=== PATIENT | female | born 2000 | race Caucasian/White ===

== ENCOUNTER 2021-07-18 20:55 | Emergency (ER) | payer MEDICAID, OTHER ==
[2021-07-18 22:10] LABS: #Eosinphils 0.2 10x3/uL (0.0-0.5); #Monocytes 0.4 10x3/uL (0.0-1.1); #Neutrophils 7.3 10x3/uL (1.5-8.4); %Basophils 0.4 % (0.0-2.0); %Lymphocytes 7.1 % (18.0-47.0); %Monocytes 4.9 % (0.0-10.0); %Neutrophils 85.1 % (40.0-75.0); Hemoglobin 11.6 g/dL (12.0-15.5); Mean Corpuscular HGB CONC 31.6 g/dL (32.0-36.0); Mean Corpuscular Hemoglobin 26.7 pg (27.0-33.0); Mean Corpuscular Volume 84.4 fl (81.6-98.3); Mean Platelet Volume 9.7 fl (7.4-10.4); Platelet Count 239 10x3/uL (150-450); RBC Distribution Width 13.4 % (11.5-14.5); Red Blood Cell (RBC) Count 4.35 10x6/uL (3.90-5.03); White Blood Cell (WBC) Count 8.5 10x3/uL (3.5-10.5)
[2021-07-18 22:32] LABS: ALT (SGPT) 10 U/L (8-55); AST (SGOT) 12 U/L (5-34); Albumin 3.6 g/dL (3.5-5.0); Alkaline Phosphatase 100 U/L (40-110); Anion Gap 11 mmol/L (10-20); BUN (Urea Nitrogen) 10 mg/dL (7.0-18.7); Bilirubin, Total 0.5 mg/dL (0.2-1.2); Calc. Creatinine Clearance 0 mL/min (70-130); Calcium 8.3 mg/dL (7.8-10.44); Carbon Dioxide 20 mmol/L (22-29); Chloride 108 mmol/L (98-107); Globulin 2.9 g/dL (2.4-3.5); Glucose 112 mg/dL (70-105); Potassium 3.2 mmol/L (3.5-5.1); Protein, Total 6.5 g/dL (6.0-8.3); Sodium 136 mmol/L (136-145)
== END 2021-07-18 23:17 | disposition home or self-care (01) ==
LOC: CSHERS 20:55
DX: N61.0 Mastitis without abscess (principal)
CPT/HCPCS: 80053; 83605; 85025; 99283

== ENCOUNTER 2025-02-03 00:09 | Day surgery (SDC) | payer OTHER ==
[2025-02-03] MEDS ORDERED: hydrALAZINE 20 MG/ML VIAL SLOW IVP PRN (00:45)
[2025-02-03 00:55] VITALS: BMI 25.4
== END 2025-02-03 05:38 | disposition home or self-care (01) ==
LOC: CSHLD/OP 00:09
PROVIDERS: ATTEND Family Medicine
DX: O47.1 False labor at or after 37 completed weeks of gestation (principal); O09.43 Supervision of pregnancy with grand multiparity, third trimester; Z3A.37 37 weeks gestation of pregnancy; Z67.11 Type A blood, Rh negative; Z79.899 Other long term (current) drug therapy
CPT/HCPCS: 99284

== ENCOUNTER 2025-02-12 23:38 | Inpatient (IN) | payer OTHER ==
[2025-02-13] MEDS ORDERED: Ibuprofen 800 MG TAB PO PRN (03:26)
[2025-02-13] MEDS ORDERED: hydrALAZINE 20 MG/ML VIAL SLOW IVP PRN ×3 (03:26→11:01)
[2025-02-13] MEDS ORDERED: Methylergonovine 0.2 MG/ML VIAL IM PRN ×2 (03:26→11:01)
[2025-02-13] MEDS ORDERED: Ondansetron PF 4 MG/2 ML Vial IVP PRN ×3 (03:26→11:01)
[2025-02-13] MEDS ORDERED: HYDROcodone/Acetaminophen 5/325 mg Tablet PO PRN (03:26)
[2025-02-13] MEDS ORDERED: Carboprost 250 MCG/ML AMP IM PRN (03:26)
[2025-02-13] MEDS ORDERED: Diphenoxylate HCl/Atropine Tablet PO PRN ×2 (03:26)
[2025-02-13] MEDS ORDERED: Lidocaine 1% (PF) 30 ML VIAL SC PRN (03:26)
[2025-02-13] MEDS ORDERED: Tranexamic Acid 1,000 MG/10 ML VIAL IVP PRN (03:26)
[2025-02-13 04:03] VITALS: BMI 25.4
[2025-02-13 04:27] LABS: Hematocrit 35.7 % (34.9-44.5); Hemoglobin 11.6 g/dL (12.0-15.5); Mean Corpuscular Hemoglobin 27.2 pg (27.0-33.0); Mean Corpuscular Volume 83.8 fL (81.6-98.3); Platelet Count 229 10x3/uL (150-450); Red Blood Cell (RBC) Count 4.26 10x6/uL (3.90-5.03); White Blood Cell (WBC) Count 14.78 10x3/uL (3.5-10.5)
[2025-02-13] MEDS: Penicillin G Potassium 5 MILL.UNITS in Sodium Chloride 0.9% 100 ML IVPB SCH (04:54)
[2025-02-13 04:59] LABS: Syphilis Antibody Index 0.04 S/CO (<1.00 Non-Reactive)
[2025-02-13 05:01] LABS: Hep B Surf Ag - L&D Non-Reactive S/CO (NonReactive)
[2025-02-13] MEDS: fentaNYL/Ropivacaine Epidural 100 ML ONE (06:46)
[2025-02-13] MEDS ORDERED: diphenhydrAMINE 50 MG/ML VIAL IVP PRN (07:09)
[2025-02-13] MEDS ORDERED: Acetaminophen 325 MG TAB PO PRN (07:09)
[2025-02-13] MEDS ORDERED: Communication Order-Pharmacy FS SCH (07:15)
[2025-02-13] MEDS ORDERED: fentaNYL 2 mcg/Ropivacaine 0.2% Epidural 100 ML CADD EPIDURAL SCH (07:15)
[2025-02-13] MEDS: Penicillin G 2.5 MILL.units 2.5 MILL.UNITS in Premix 1 BAG IVPB SCH (08:18)
[2025-02-13] MEDS: Oxytocin 30 units/NS 500 ML 500 ML IV SCH ×2 (08:18→11:27)
[2025-02-13] MEDS ORDERED: Preparation H Ointment 28 GM TUBE PR PRN (11:01)
[2025-02-13] MEDS ORDERED: Milk Of Magnesia 30 ML UDCUP PO PRN (11:01)
[2025-02-13] MEDS ORDERED: Benzocaine-Menthol 82.5 ML CAN TOP PRN (11:01)
[2025-02-13] MEDS ORDERED: Methylergonovine 0.2 MG TAB PO PRN (11:01)
[2025-02-13] MEDS ORDERED: Bisacodyl 10 MG SUPP PR PRN (11:01)
[2025-02-13] MEDS ORDERED: Boostrix 0.5 ML (Tdap) VIAL (>/=7 yrs of age) IM ONE (11:01)
[2025-02-13] MEDS ORDERED: diphenhydrAMINE 25 MG CAP PO PRN (11:01)
[2025-02-13] MEDS ORDERED: Lanolin Ointment 7 GM TUBE TOP PRN (11:01)
[2025-02-13] MEDS ORDERED: Oxytocin 30 units/NS 500 ML 500 ML IV SCH (11:15)
[2025-02-13] MEDS ORDERED: Bupivacaine 0.25% HCL 30 ML VIAL ONE (12:52)
[2025-02-13] MEDS: Ibuprofen 800 MG TAB PO SCH (15:00)
[2025-02-13] MEDS: Ferrous Sulfate 325 MG TAB PO SCH (17:56)
[2025-02-14 13:43] VITALS: BP 103/59; TEMP 98.2
== END 2025-02-14 17:00 | disposition home or self-care (01) | DRG 807 ==
LOC: CSHLD/OP 23:38 → CSHLD 02-13 03:51 → CSHPP 02-13 13:24
PROVIDERS: ADMIT Family Medicine; ATTEND Family Medicine
PROC: 10E0XZZ Delivery of Products of Conception, External Approach (ICD-10-PCS; principal; 2025-02-13)
DX: O99.824 Streptococcus B carrier state complicating childbirth (principal); Z37.0 Single live birth; Z3A.39 39 weeks gestation of pregnancy; O70.0 First degree perineal laceration during delivery
CPT/HCPCS: 51702; 85027; 86780; 86850; 86900; 86901; 87340; 99285; J0665; J2540; J2590